=== PATIENT | male | born 1935 | race Caucasian/White ===

== ENCOUNTER 2018-10-13 19:42 | Inpatient (IN) | payer MEDICARE ==
[~2018-10-13] VITALS: Ht 177.8 cm; Wt 61.2 kg
[2018-10-13 20:11] LABS: BASOPHILS # (AUTO) 0.1 K/uL (0.0-8.0); BASOPHILS % (AUTO) 0.9 % (0.0-2.0); EOSINOPHILS # (AUTO) 0.3 K/uL (0.0-0.7); EOSINOPHILS % (AUTO) 4.1 % (0.0-7.0); HEMATOCRIT 40.9 % (36.7-47.1); LYMPHOCYTES # (AUTO) 1.7 K/uL (20.0-40.0); LYMPHOCYTES % (AUTO) 26.1 % (20.5-51.5); MEAN CORPUSCULAR HGB CONC 34 g/dL (32.5-36.3); MEAN CORPUSCULAR VOLUME 90.5 fL (73.0-96.2); MONOCYTES # (AUTO) 0.5 K/uL (2.0-10.0); NEUTROPHILS # (AUTO) 3.9 K/uL (1.8-8.9); NEUTROPHILS % (AUTO) 60.9 % (38.5-71.5); PLATELET COUNT (AUTO) 283 K/uL (152-348); RED BLOOD CELL COUNT(AUTO) 4.52 MIL/uL (4.06-5.63); WHITE BLOOD COUNT (AUTO) 6.5 K/uL (3.6-10.2)
[2018-10-13 20:12] LABS: CARBON DIOXIDE 28 mmol/L (21-32); CHLORIDE 105 mmol/L (98-107); CREATININE 1.1 mg/dL (0.6-1.3); GLUCOSE 130 mg/dL (74-106); POTASSIUM 4.9 mmol/L (3.5-5.1); UREA NITROGEN, BLOOD 24 mg/dL (7-18)
[2018-10-13 20:34] LABS: EOSINOPHILS % (MANUAL) 5 % (0-8); LYMPHOCYTES % (MANUAL) 24 % (20-40); MONOCYTES % (MANUAL) 8 % (2-10); NEUTROPHILS % (MANUAL) 63 % (42-75)
[2018-10-13] MEDS ORDERED: ASPIRIN 325 MG TABLET PO ONE (21:45)
[2018-10-14] MEDS ORDERED: LORAZEPAM 0.5 MG TABLET PO PRN (01:30)
[2018-10-14] MEDS ORDERED: MAG HYDROX/AL HYDROX/SIMETH 30 ML LIQUID UDC PO PRN (01:30)
[2018-10-14] MEDS ORDERED: ACETAMINOPHEN 325 MG TABLET PO PRN (01:30)
[2018-10-14] MEDS ORDERED: MAGNESIUM HYDROXIDE 30 ML LIQUID UDC PO PRN (01:30)
[2018-10-14] MEDS ORDERED: TEMAZEPAM 7.5 MG CAPSULE PO PRN (01:30)
[2018-10-14 01:45] VITALS: BP 100/53
[2018-10-14 12:00] VITALS: BP 99/51
[2018-10-14] MEDS: QUETIAPINE FUMARATE 25 MG TABLET PO SCH ×2 (14:45→21:09)
[2018-10-14 16:00] VITALS: BP 95/52
[2018-10-14 20:00] VITALS: BP 105/49
[2018-10-14] MEDS: MIRTAZAPINE 15 MG TABLET PO SCH (21:09)
[2018-10-15 05:52] VITALS: BP 107/49
[2018-10-15] MEDS ORDERED: LORAZEPAM 1 MG TABLET PO PRN (07:45)
[2018-10-15] MEDS: QUETIAPINE FUMARATE 25 MG TABLET PO SCH ×2 (09:02→20:31)
[2018-10-15 11:56] VITALS: BP 98/54
[2018-10-15 16:30] VITALS: BP 101/57
[2018-10-15 19:30] VITALS: BP 112/58
[2018-10-15] MEDS: MIRTAZAPINE 15 MG TABLET PO SCH (20:29)
[2018-10-16 05:33] VITALS: BP 117/51
[2018-10-16 06:10] LABS: BASOPHILS # (AUTO) 0.1 K/uL (0.0-8.0); EOSINOPHILS # (AUTO) 0.3 K/uL (0.0-0.7); EOSINOPHILS % (AUTO) 4.4 % (0.0-7.0); HEMATOCRIT 38.3 % (36.7-47.1); HEMOGLOBIN 13.3 g/dL (12.5-16.3); LYMPHOCYTES # (AUTO) 1.7 K/uL (20.0-40.0); LYMPHOCYTES % (AUTO) 26.4 % (20.5-51.5); MEAN CORPUSCULAR HEMOGLOBIN 31.4 uug (23.8-33.4); MEAN CORPUSCULAR HGB CONC 35 g/dL (32.5-36.3); MEAN CORPUSCULAR VOLUME 90.8 fL (73.0-96.2); MONOCYTES # (AUTO) 0.5 K/uL (2.0-10.0); MONOCYTES % (AUTO) 8.3 % (0.0-11.0); NEUTROPHILS # (AUTO) 3.8 K/uL (1.8-8.9); NEUTROPHILS % (AUTO) 59.9 % (38.5-71.5); PLATELET COUNT (AUTO) 244 K/uL (152-348); RED BLOOD CELL COUNT(AUTO) 4.22 MIL/uL (4.06-5.63); WHITE BLOOD COUNT (AUTO) 6.3 K/uL (3.6-10.2)
[2018-10-16 06:22] LABS: CARBON DIOXIDE 27 mmol/L (21-32); CHLORIDE 107 mmol/L (98-107); CREATININE 0.9 mg/dL (0.6-1.3); GLUCOSE 92 mg/dL (74-106); MAGNESIUM 1.9 mg/dL (1.8-2.4); PHOSPHOROUS 2.9 mg/dL (2.5-4.9); POTASSIUM 4.1 mmol/L (3.5-5.1); UREA NITROGEN, BLOOD 16 mg/dL (7-18)
[2018-10-16 08:09] VITALS: BP 113/60
[2018-10-16] MEDS: QUETIAPINE FUMARATE 25 MG TABLET PO SCH ×2 (08:19→20:19)
[2018-10-16 10:00] VITALS: BP 110/50
[2018-10-16 14:00] VITALS: BP 103/49
[2018-10-16] MEDS: ENSURE WITH FIBER 237 ML LIQUID (CHOCOLATE) PO SCH (15:28)
[2018-10-16 19:52] VITALS: BP 112/64
[2018-10-16] MEDS: MIRTAZAPINE 15 MG TABLET PO SCH (20:19)
[2018-10-17 07:30] VITALS: BP 116/56
[2018-10-17] MEDS: ENSURE WITH FIBER 237 ML LIQUID (CHOCOLATE) PO SCH (09:00)
[2018-10-17] MEDS: QUETIAPINE FUMARATE 25 MG TABLET PO SCH ×3 (09:00→21:26)
[2018-10-17 16:04] VITALS: BP 102/63
[2018-10-17 21:01] VITALS: BP 115/61
[2018-10-17] MEDS: MIRTAZAPINE 15 MG TABLET PO SCH (21:26)
[2018-10-18 07:30] VITALS: BP 107/56
[2018-10-18] MEDS: QUETIAPINE FUMARATE 25 MG TABLET PO SCH ×2 (08:34→20:27)
[2018-10-18] MEDS: ENSURE WITH FIBER 237 ML LIQUID (CHOCOLATE) PO SCH (08:35)
[2018-10-18 16:00] VITALS: BP 133/56
[2018-10-18 19:47] VITALS: BP 117/101
[2018-10-18] MEDS: MIRTAZAPINE 15 MG TABLET PO SCH (20:28)
[2018-10-19 07:30] VITALS: BP 108/57
[2018-10-19] MEDS: QUETIAPINE FUMARATE 25 MG TABLET PO SCH ×2 (09:21→20:39)
[2018-10-19] MEDS: ENSURE WITH FIBER 237 ML LIQUID (CHOCOLATE) PO SCH (09:21)
[2018-10-19 16:00] VITALS: BP 112/55
[2018-10-19 19:45] VITALS: BP 100/56
[2018-10-19] MEDS: MIRTAZAPINE 15 MG TABLET PO SCH (20:41)
[2018-10-20 07:32] VITALS: BP 117/59
[2018-10-20] MEDS: QUETIAPINE FUMARATE 25 MG TABLET PO SCH ×2 (08:20→21:21)
[2018-10-20] MEDS: ENSURE WITH FIBER 237 ML LIQUID (CHOCOLATE) PO SCH (08:21)
[2018-10-20 15:24] VITALS: BP 96/46
[2018-10-20 19:41] VITALS: BP 111/51
[2018-10-20] MEDS: MIRTAZAPINE 15 MG TABLET PO SCH (21:21)
[2018-10-21 07:30] VITALS: BP 99/58
[2018-10-21] MEDS: ENSURE WITH FIBER 237 ML LIQUID (CHOCOLATE) PO SCH (08:40)
[2018-10-21] MEDS: QUETIAPINE FUMARATE 25 MG TABLET PO SCH ×2 (08:40→20:31)
[2018-10-21 16:00] VITALS: BP 117/63
[2018-10-21 19:43] VITALS: BP 110/50
[2018-10-21] MEDS: MIRTAZAPINE 15 MG TABLET PO SCH (20:32)
[2018-10-22] MEDS: QUETIAPINE FUMARATE 25 MG TABLET PO SCH (08:29)
[2018-10-22] MEDS: ENSURE WITH FIBER 237 ML LIQUID (CHOCOLATE) PO SCH (08:29)
[2018-10-22 08:30] VITALS: BP 123/79
== END 2018-10-22 13:30 | DRG 885 ==
LOC: ER 19:47 → GPSOV3 10-14 01:11 → GPS 10-16 22:52
PROVIDERS: ADMIT Psychiatry & Neurology Psychiatry; ATTEND Student in an Organized Health Care Education/Training Program
DX: F33.3 Major depressive disorder, recurrent, severe with psychotic symptoms (principal); G93.40 Encephalopathy, unspecified; J98.11 Atelectasis; Z68.1 Body mass index [BMI] 19.9 or less, adult; Z59.0 Homelessness; R62.7 Adult failure to thrive; F03.90 Unspecified dementia, unspecified severity, without behavioral disturbance, psychotic disturbance, mood disturbance, and anxiety; Z91.83 Wandering in diseases classified elsewhere; J43.9 Emphysema, unspecified; H91.90 Unspecified hearing loss, unspecified ear; Z87.891 Personal history of nicotine dependence
CPT/HCPCS: 36415; 70030-TC; 71045; 83735; 84100; 84443; 85025; 93005; A4663

== ENCOUNTER 2019-02-17 15:36 | Inpatient (IN) | payer MEDICARE ==
[~2019-02-17] VITALS: Ht 172.7 cm; Wt 65.8 kg
--- NOTE | 2019-02-17 15:50 | NUR ---
Patient bib pvt ambulance from [facility] for med cl. Patient A/Ox3. Speech is clear, speaks in complete sentences. No acute neuro deficits noted. Patient reported being aggressive with staff. Respiratory even and unlabored, no cough no sob. No acute cardiovascular distress noted, all pulses palpable. Denies any n/v/d. Patient in bed at lowest position, sr upx2, call light within reach. Fall precautions implemented per protocol.
[2019-02-17 16:06] LABS: BASOPHILS % (AUTO) 0.1 % (0.0-2.0); EOSINOPHILS # (AUTO) 0.1 K/uL (0.0-0.7); EOSINOPHILS % (AUTO) 1.5 % (0.0-7.0); HEMOGLOBIN 13.3 g/dL (12.5-16.3); LYMPHOCYTES # (AUTO) 1.8 K/uL (20.0-40.0); LYMPHOCYTES % (AUTO) 29.2 % (20.5-51.5); MEAN CORPUSCULAR HEMOGLOBIN 30.5 uug (23.8-33.4); MEAN CORPUSCULAR HGB CONC 33 g/dL (32.5-36.3); MEAN CORPUSCULAR VOLUME 91.7 fL (73.0-96.2); MONOCYTES # (AUTO) 0.4 K/uL (2.0-10.0); MONOCYTES % (AUTO) 7.4 % (0.0-11.0); NEUTROPHILS # (AUTO) 3.7 K/uL (1.8-8.9); NEUTROPHILS % (AUTO) 61.8 % (38.5-71.5); PLATELET COUNT (AUTO) 209 K/uL (152-348); RED BLOOD CELL COUNT(AUTO) 4.36 MIL/uL (4.06-5.63); WHITE BLOOD COUNT (AUTO) 6.1 K/uL (3.6-10.2)
[2019-02-17 16:21] LABS: ALANINE AMINOTRANSFERASE 34 U/L (16-63); ALKALINE PHOSPHATASE 72 U/L (50-136); ASPARTATE AMINOTRANSFERASE 25 U/L (15-37); BILIRUBIN,DIRECT 0.1 mg/dL (0.0-0.2); BILIRUBIN,TOTAL 0.5 mg/dL (0.2-1.0); CARBON DIOXIDE 30 mmol/L (21-32); CHLORIDE 105 mmol/L (98-107); CREATININE 0.9 mg/dL (0.6-1.3); GLUCOSE 96 mg/dL (74-106); POTASSIUM 4.2 mmol/L (3.5-5.1); TOTAL PROTEIN, SERUM 7.1 g/dL (6.4-8.2); UREA NITROGEN, BLOOD 18 mg/dL (7-18)
[2019-02-17] MEDS ORDERED: LORA0.5T48 PO (16:23)
[2019-02-17] MEDS ORDERED: GABA-532 PO (16:23)
[2019-02-17] MEDS ORDERED: MIRT15TA7 PO (16:23)
[2019-02-17] MEDS ORDERED: QUET25TA PO (16:23)
[2019-02-17] MEDS ORDERED: MULT1TAB82 PO (16:23)
[2019-02-17] MEDS ORDERED: MAG-149 PO (16:23)
[2019-02-17] MEDS ORDERED: ACET-2154 PO (16:23)
[2019-02-17] MEDS ORDERED: PETR113O TP (16:23)
[2019-02-17] MEDS ORDERED: LEVO25TA9 PO (16:23)
[2019-02-17 16:24] LABS: *BILIRUBIN,URIN NEGATIVE (NEGATIVE); *BLOOD, URINE NEGATIVE (NEGATIVE); *CLARITY,URINE CLEAR (CLEAR); *COLOR,URINE YELLOW (YELLOW); *KETONES,URINE NEGATIVE (NEGATIVE); *UROBILINOGEN,URINE 0.2 E.U./dl (NORMAL); LEUKOCYTE ESTERASE ,URINE NEGATIVE (NEGATIVE); NITRITE, URINE NEGATIVE (NEGATIVE); UGLUCOSE NEGATIVE (NEGATIVE)
[2019-02-17 16:25] LABS: ACETAMINOPHEN < 10.0 ug/mL (10-30)
[2019-02-17 16:34] LABS: ETHANOL < 3 MG/DL (0-0)
--- NOTE | 2019-02-17 16:34 | NUR ---
David has been contacted, 1 hour ETA
[2019-02-17 16:44] LABS: *AMPHETAMINE, URINE NEGATIVE (NEGATIVE); *BARBITURATE, URINE NEGATIVE (NEGATIVE); *CANNABINOID, URINE NEGATIVE (NEGATIVE); *COCCAINE, URINE NEGATIVE (NEGATIVE); *OPIATE, URINE NEGATIVE (NEGATIVE); *PHENCYCLIDINE SCREEN,URINE NEGATIVE (NEGATIVE)
--- NOTE | 2019-02-17 17:40 | NUR ---
David Wolfe here at facility for mariposa thakur of pt
--- NOTE | 2019-02-17 18:34 | NUR ---
Report given to CORWIN Augustin.
--- NOTE | 2019-02-17 19:00 | NUR ---
Patient transported to [facility] in stable condition.
[2019-02-17 20:00] VITALS: BP 120/56
[2019-02-17] MEDS ORDERED: MAG HYDROX/AL HYDROX/SIMETH 30 ML LIQUID UDC PO PRN (20:00)
[2019-02-17] MEDS ORDERED: ACETAMINOPHEN 325 MG TABLET PO PRN (20:00)
[2019-02-17] MEDS ORDERED: MAGNESIUM HYDROXIDE 30 ML LIQUID UDC PO PRN (20:00)
[2019-02-17] MEDS ORDERED: LORAZEPAM 1 MG TABLET PO PRN (20:00)
--- NOTE | 2019-02-17 22:24 | NUR ---
Received to care, at 1915, from the emergency room, on a 72 hour hold for gravely disabled, a transfer from [facility]. according to the hold, he has had a recent episode of elopement, having been brought back by [employer], when he had wandered off, without notice. it also stated that he is confused, unable to provide for himself, and has had recent episodes of becoming aggressive. he has resided there, since being discharged from the [facility], in october of 2018. upon arrival on the unit, he was calm and cooperative, but oriented to name only, and had no idea why he was in the hospital. when he was told the reason, he had no recollection of reported events. pts rights booklet was given, and he was advised of his hold. he was assisted to bed, he went to sleep without a sleeping pill. as of now, he remains asleep. no distress noted. will continue to monitor closely.
--- NOTE | 2019-02-18 06:19 | NUR ---
slept 7.5 hours. continues to sleep. no distress noted.
[2019-02-18 07:30] VITALS: BP 115/55
[2019-02-18] MEDS: QUETIAPINE FUMARATE 25 MG TABLET PO SCH ×2 (10:16→16:34)
[2019-02-18] MEDS: DIVALPROEX 250 MG TABLET.DR PO SCH ×2 (10:17→20:27)
[2019-02-18 15:14] VITALS: BP 101/48
--- NOTE | 2019-02-18 15:51 | NUR ---
Initial Discharge Plan: [place] [address] ([phone]) and will be able to return upon discharge. Ct Technologist spoke with Rukhsana funding coordinator at the facility who stated that upon patient's discharge they will need to send someone to evaluate the patient before his return. Ct Technologist will continue to work with patient, family, and MD to ensure a safe and proper discharge plan. social worker delinquency prevention spoke with patient's daughter, Judy ([phone]) who stated that they would like patient to return to [facility].
--- NOTE | 2019-02-18 15:52 | NUR ---
Family Contact: Recycling Manager spoke with patient's daughter, Judy Hansen who gave collateral information regarding patient's history. Judy stated patient has been staying at [facility] since November 2018, and would like for patient tor return there. Judy states the patient's , Shama Ruiz is the patient's conservator and will be emailing this production underwriter the documentation.
--- NOTE | 2019-02-18 15:53 | NUR ---
Coordination of Care: Stenographer Print Shop spoke with Rukhsana Manager Plant at [facility] [id number] [place] [id number] ([phone]) who stated that upon patient's discharge they will need to assess the patient.
[2019-02-18] MEDS: MIRTAZAPINE 15 MG TABLET PO SCH (20:27)
[2019-02-18 20:57] VITALS: BP 100/55
--- NOTE | 2019-02-19 06:02 | NUR ---
Patient slept 8.15 hours last night and continues to sleep. No acute distress noted, continuing to monitor for safety.
[2019-02-19] MEDS: LEVOTHYROXINE SODIUM 25 MCG TABLET PO SCH (06:13)
[2019-02-19 07:30] VITALS: BP 111/56
[2019-02-19] MEDS: DIVALPROEX 250 MG TABLET.DR PO SCH ×2 (09:57→20:22)
[2019-02-19] MEDS: MULTIVIT, IRON, MIN NO. 8, FA TABLET PO SCH (09:57)
[2019-02-19] MEDS: QUETIAPINE FUMARATE 25 MG TABLET PO SCH ×2 (09:59→18:21)
--- NOTE | 2019-02-19 10:32 | NUR ---
Firearms Report ([employer]): Marketing Content Coordinator completed and submitted a [employer] firearms report for 5150 grave disability certification. A copy of report has been placed in patient chart.
[2019-02-19 17:14] VITALS: BP 103/53
[2019-02-19] MEDS: MIRTAZAPINE 15 MG TABLET PO SCH (20:22)
[2019-02-19 23:13] VITALS: BP 98/48
[2019-02-20] MEDS: LEVOTHYROXINE SODIUM 25 MCG TABLET PO SCH (06:48)
[2019-02-20 07:30] VITALS: BP 125/64
[2019-02-20] MEDS: MULTIVIT, IRON, MIN NO. 8, FA TABLET PO SCH (08:44)
[2019-02-20] MEDS: QUETIAPINE FUMARATE 25 MG TABLET PO SCH ×2 (08:44→16:28)
[2019-02-20] MEDS: DIVALPROEX 250 MG TABLET.DR PO SCH ×2 (08:44→20:50)
[2019-02-20 16:00] VITALS: BP 104/53
[2019-02-20 20:00] VITALS: BP 117/61
--- NOTE | 2019-02-20 20:00 | NUR ---
Patient received into care, laying in bed resting comfortably. Patient has no signs/symptoms of acute distress or discomfort at this time. All safety and fall precaution measures are in place. Will continue to monitor.
[2019-02-20] MEDS: ATORVASTATIN 20 MG TABLET PO SCH (20:50)
[2019-02-20] MEDS: MIRTAZAPINE 15 MG TABLET PO SCH (20:50)
[2019-02-21] MEDS: LEVOTHYROXINE SODIUM 25 MCG TABLET PO SCH (06:33)
[2019-02-21 07:30] VITALS: BP 127/57
[2019-02-21] MEDS: DIVALPROEX 250 MG TABLET.DR PO SCH ×2 (08:09→20:14)
[2019-02-21] MEDS: QUETIAPINE FUMARATE 25 MG TABLET PO SCH ×2 (08:09→17:00)
[2019-02-21] MEDS: MULTIVIT, IRON, MIN NO. 8, FA TABLET PO SCH (08:09)
[2019-02-21] MEDS: MIRTAZAPINE 15 MG TABLET PO SCH (20:14)
[2019-02-21] MEDS: ATORVASTATIN 20 MG TABLET PO SCH (20:14)
[2019-02-21 20:17] VITALS: BP 119/59
[2019-02-22] MEDS: LEVOTHYROXINE SODIUM 25 MCG TABLET PO SCH (06:27)
[2019-02-22 07:30] VITALS: BP 106/57
[2019-02-22] MEDS: MULTIVIT, IRON, MIN NO. 8, FA TABLET PO SCH (08:15)
[2019-02-22] MEDS: DIVALPROEX 250 MG TABLET.DR PO SCH ×2 (08:15→20:17)
[2019-02-22] MEDS: QUETIAPINE FUMARATE 25 MG TABLET PO SCH ×2 (08:16→16:48)
[2019-02-22 16:00] VITALS: BP 112/60
[2019-02-22] MEDS: ATORVASTATIN 20 MG TABLET PO SCH (20:17)
[2019-02-22] MEDS: MIRTAZAPINE 15 MG TABLET PO SCH (20:17)
[2019-02-22 20:24] VITALS: BP 101/45
[2019-02-23] MEDS: TEMAZEPAM 7.5 MG CAPSULE PO PRN (01:14)
[2019-02-23] MEDS: LEVOTHYROXINE SODIUM 25 MCG TABLET PO SCH (06:02)
[2019-02-23 07:44] LABS: BASOPHILS % (AUTO) 0.7 % (0.0-2.0); EOSINOPHILS # (AUTO) 0.3 K/uL (0.0-0.7); EOSINOPHILS % (AUTO) 5.4 % (0.0-7.0); HEMATOCRIT 39.3 % (36.7-47.1); HEMOGLOBIN 12.9 g/dL (12.5-16.3); LYMPHOCYTES # (AUTO) 2.1 K/uL (20.0-40.0); MEAN CORPUSCULAR HGB CONC 33 g/dL (32.5-36.3); MEAN CORPUSCULAR VOLUME 91.4 fL (73.0-96.2); MONOCYTES # (AUTO) 0.5 K/uL (2.0-10.0); MONOCYTES % (AUTO) 9.7 % (0.0-11.0); NEUTROPHILS # (AUTO) 2.6 K/uL (1.8-8.9); NEUTROPHILS % (AUTO) 47.2 % (38.5-71.5); PLATELET COUNT (AUTO) 186 K/uL (152-348); WHITE BLOOD COUNT (AUTO) 5.6 K/uL (3.6-10.2)
[2019-02-23 07:55] LABS: BILIRUBIN,TOTAL 0.6 mg/dL (0.2-1.0); CREATININE 0.8 mg/dL (0.6-1.3); POTASSIUM 3.9 mmol/L (3.5-5.1); TOTAL PROTEIN, SERUM 6.2 g/dL (6.4-8.2)
[2019-02-23 08:16] VITALS: BP 110/57
[2019-02-23] MEDS: QUETIAPINE FUMARATE 25 MG TABLET PO SCH ×2 (08:16→16:32)
[2019-02-23] MEDS: MULTIVIT, IRON, MIN NO. 8, FA TABLET PO SCH (08:16)
[2019-02-23] MEDS: DIVALPROEX 250 MG TABLET.DR PO SCH ×2 (08:16→20:20)
--- NOTE | 2019-02-23 16:19 | NUR ---
patient up ambulating with PT with FWW, well tolerated denies any pain or discomfort though the day, patient had hematuria noted,spoke with Martin Vicente NP with new order made. Addendum: 02/24/19 at 0909 by ALBAN DRAKE RN Disregard above note, charted on the wrong patient.
[2019-02-23 16:20] VITALS: BP 91/52
[2019-02-23 20:00] VITALS: BP 111/52
[2019-02-23] MEDS: MIRTAZAPINE 15 MG TABLET PO SCH (20:20)
[2019-02-23] MEDS: ATORVASTATIN 20 MG TABLET PO SCH (20:20)
[2019-02-24] MEDS: TEMAZEPAM 7.5 MG CAPSULE PO PRN (00:37)
[2019-02-24] MEDS: LEVOTHYROXINE SODIUM 25 MCG TABLET PO SCH (06:24)
[2019-02-24 07:30] VITALS: BP 115/57
[2019-02-24] MEDS: QUETIAPINE FUMARATE 25 MG TABLET PO SCH ×2 (08:28→16:25)
[2019-02-24] MEDS: DIVALPROEX 250 MG TABLET.DR PO SCH ×2 (08:28→20:02)
[2019-02-24] MEDS: MULTIVIT, IRON, MIN NO. 8, FA TABLET PO SCH (08:28)
[2019-02-24 15:22] VITALS: BP 113/61
[2019-02-24 19:45] VITALS: BP 114/60
[2019-02-24] MEDS: MIRTAZAPINE 15 MG TABLET PO SCH (20:02)
[2019-02-24] MEDS: ATORVASTATIN 20 MG TABLET PO SCH (20:02)
[2019-02-25] MEDS: LEVOTHYROXINE SODIUM 25 MCG TABLET PO SCH (07:00)
[2019-02-25 07:30] VITALS: BP 122/50
[2019-02-25] MEDS: DIVALPROEX 250 MG TABLET.DR PO SCH ×2 (10:21→20:11)
[2019-02-25] MEDS: QUETIAPINE FUMARATE 25 MG TABLET PO SCH ×2 (10:22→17:05)
[2019-02-25] MEDS: MULTIVIT, IRON, MIN NO. 8, FA TABLET PO SCH (10:22)
--- NOTE | 2019-02-25 14:58 | NUR ---
Coordination of Care: Scrap Materials Buyer spoke with Rukhsana financial coordinator [address] [address] ([phone]) regarding patient's plan for discharge this week. Rukhsana stated her director advanced will be giving this sports book writer a call regarding this plan. Addendum: 02/25/19 at 1608 by HILTON CROUCH horticultural worker received a call back from Alonso Childers director who stated that she will be coming morning to conduct an assessment of the patient prior to his discharge this Sunday.
[2019-02-25 15:32] VITALS: BP 90/45
[2019-02-25 19:56] VITALS: BP 93/51
[2019-02-25] MEDS: MIRTAZAPINE 15 MG TABLET PO SCH (20:11)
[2019-02-25] MEDS: ATORVASTATIN 20 MG TABLET PO SCH (20:11)
[2019-02-26] MEDS: LEVOTHYROXINE SODIUM 25 MCG TABLET PO SCH (06:07)
[2019-02-26 07:30] VITALS: BP 112/50
[2019-02-26] MEDS: QUETIAPINE FUMARATE 25 MG TABLET PO SCH ×2 (08:02→17:07)
[2019-02-26] MEDS: MULTIVIT, IRON, MIN NO. 8, FA TABLET PO SCH (08:02)
[2019-02-26] MEDS: DIVALPROEX 250 MG TABLET.DR PO SCH ×2 (08:02→20:15)
--- NOTE | 2019-02-26 10:38 | NUR ---
Discharge Planning: Storage Engineer spoke with Dr. Dhaliwal and he referred patient for halfway placement at [facility] ([phone]). LULY faxed a referral packet to Bacilio at the facility for review.
[2019-02-26 16:00] VITALS: BP 109/55
[2019-02-26 20:07] VITALS: BP 101/50
[2019-02-26] MEDS: ATORVASTATIN 20 MG TABLET PO SCH (20:14)
[2019-02-26] MEDS: MIRTAZAPINE 15 MG TABLET PO SCH (20:15)
--- NOTE | 2019-02-26 22:00 | NUR ---
received to care, asleep, in bed. pleasant upon approach. compliant with medications, snacks, and staff direction. as of 2199, he appears to be asleep. no distress noted. will continue to monitor closely.
[2019-02-27] MEDS: LEVOTHYROXINE SODIUM 25 MCG TABLET PO SCH (06:40)
--- NOTE | 2019-02-27 06:45 | NUR ---
slept well. assisted with am care, and shower. no distress noted.
[2019-02-27 07:30] VITALS: BP 113/55
[2019-02-27] MEDS: MULTIVIT, IRON, MIN NO. 8, FA TABLET PO SCH (08:43)
[2019-02-27] MEDS: DIVALPROEX 250 MG TABLET.DR PO SCH ×2 (08:43→20:47)
[2019-02-27] MEDS: QUETIAPINE FUMARATE 25 MG TABLET PO SCH ×2 (08:46→16:54)
[2019-02-27 16:10] VITALS: BP 98/47
[2019-02-27 20:00] VITALS: BP 96/51
[2019-02-27] MEDS: ATORVASTATIN 20 MG TABLET PO SCH (20:47)
[2019-02-27] MEDS: MIRTAZAPINE 15 MG TABLET PO SCH (20:48)
--- NOTE | 2019-02-27 23:39 | NUR ---
received to care, asleep, in bed. pleasant upon approach. compliant with medications, and staff direction. as of 2199, he appears to be asleep. no distress noted. will continue to monitor closely.
--- NOTE | 2019-02-28 06:03 | NUR ---
slept 8.75 hours. no distress noted.
[2019-02-28] MEDS: LEVOTHYROXINE SODIUM 25 MCG TABLET PO SCH (06:43)
[2019-02-28 08:00] VITALS: BP 125/70
--- NOTE | 2019-02-28 08:27 | NUR ---
Discharge Note: Patient will be discharged back to [facility], [facility] [address] [place] [address] ([phone]) via ambulance. Please arrange ambulance transportation for patient to picked up at 11:00AM. Spoke with Bacilio director of direct marketing at the facility who states they are ready to accept the patient today. Patient will follow-up at the facility with Dr. Hook Elevator Tender and Dr. Dhaliwal Psychiatrist. Patient is alert and oriented times 2-4, denies suicidal or homicidal ideation, and is aware and agreeable with discharge plans. Patient presents with calm mood and euthymic affect during the time of discharge. Patient is unable to plan for self-care at this time, however, is willing to accept care provided at the facility. Patients daughter, Judy Hansen )[phone]) is made aware and is agreeable with discharge plans.
[2019-02-28] MEDS: QUETIAPINE FUMARATE 25 MG TABLET PO SCH (08:38)
[2019-02-28] MEDS: MULTIVIT, IRON, MIN NO. 8, FA TABLET PO SCH (08:38)
[2019-02-28] MEDS: DIVALPROEX 250 MG TABLET.DR PO SCH (08:38)
--- NOTE | 2019-02-28 11:00 | NUR ---
Gps/Furnace Tender- Called [facility] , report given to Kaylie Rn , pt. assigned to room # 28 . All belongings given back to patient. He was well informed of his discharge plan , no complaints noted.
--- NOTE | 2019-02-28 11:35 | NUR ---
Gps/Manager Fleet- Discharged via ambulance, in no sign of a distress, no discomfort , in good spirit.
== END 2019-02-28 11:40 | DRG 885 ==
LOC: ER 15:38 → GPS 18:36
PROVIDERS: ADMIT Psychiatry & Neurology Psychiatry; ATTEND Internal Medicine
DX: F39 Unspecified mood [affective] disorder (principal); F03.91 Unspecified dementia, unspecified severity, with behavioral disturbance; E87.1 Hypo-osmolality and hyponatremia; F29 Unspecified psychosis not due to a substance or known physiological condition; G47.00 Insomnia, unspecified; J44.9 Chronic obstructive pulmonary disease, unspecified; E03.9 Hypothyroidism, unspecified; Z79.890 Hormone replacement therapy; F41.9 Anxiety disorder, unspecified; I10 Essential (primary) hypertension; Z79.899 Other long term (current) drug therapy; Z91.14 Patient's other noncompliance with medication regimen
CPT/HCPCS: 36415; 80307; 84443; 85025; 93005; A4663; G0480; G0480-TC; J3490